=== PATIENT | female | born 1995 | race Asian ===

== ENCOUNTER → 2021-12-05 13:04 | Outpatient (CLI) | payer OTHER, SELFPAY ==
[2021-12-05 13:34] LABS: Add Manual Diff / Slide Review NO; Appearance Urine UA CLEAR; Basophils Absolute Auto 0 /uL (0-100); Basophils Percent Auto 0.8 % (0-2); Bilirubin Urine UA NEGATIVE (NEGATIVE); Color Urine UA YELLOW; Eosinophils Absolute Auto 200 /uL (0-450); Eosinophils Percent Auto 4.2 % (2-4); Glucose Urine UA NEGATIVE (Negative); Hematocrit 35.8 % (36-46); Hemoglobin 12.6 g/dL (12.0-16.0); Ketones Urine UA NEGATIVE (NEGATIVE); Leukocyte Esterase Urine UA NEGATIVE (NEGATIVE); Lymphocytes Absolute Auto 1900 /uL (1100-4500); Lymphocytes Percent Auto 32.9 % (25-40); Mean Corpuscular HGB Conc 35.1 % (30-36); Mean Corpuscular Hemoglobin 31.8 PG (26-34); Mean Corpuscular Volume 90.6 fL (80-100); Monocytes Absolute Auto 300 /uL (0-900); Monocytes Percent Auto 5.5 % (3-14); Neutrophils Absolute Auto 3300 /uL (1500-7000); Neutrophils Percent Auto 56.6 % (50-75); Nitrite Urine UA NEGATIVE (Negative); Occult Blood Urine UA NEGATIVE (Negative); Platelet Count 244 X10^3/uL (150-400); Protein Urine UA NEGATIVE (Negative); Red Blood Cell Count 3.95 X10^6/uL (4.0-5.2); Red Cell Distribution Width 12.8 % (11.6-14.8); Specific Gravity Urine UA <=1.005 (1.000-1.035); Urobilinogen Urine UA 0.2 E.U./dL (0.2); White Blood Cell Count 5.8 X10^3/uL (4.5-11.0)
[2021-12-06 04:54] LABS: RPR Screen Non Reactive (Non Reactive)
[2021-12-06 09:09] LABS: Varicella IgG Antibody 909 index (Immune >165)
[2021-12-06 17:05] LABS: Hepatitis B Surface Antigen NEGATIVE s/c (NEGATIVE); Rubella Antibody IgG 6.8 IU/mL (>15)
[2021-12-06 17:19] LABS: HIV 1 & 2 Ab/Ag 4th Gen Combo NEGATIVE (NEGATIVE); Hep C Virus Ab w/Reflex Quant NEGATIVE s/c (NEGATIVE)
== END ==
PROVIDERS: Referring Provider Family Medicine; Visit Provider Family Medicine
DX: Z34.01 Encounter for supervision of normal first pregnancy, first trimester (principal)
CPT/HCPCS: 36415; 80055; 81003; 86787; 86803; 86850; 86900; 86901; 87086; 87389

== ENCOUNTER → 2022-02-20 09:18 | Outpatient (CLI) | payer OTHER, SELFPAY ==
--- NOTE | 2022-02-20 09:20 | DI.US.S_ITS ---
PROCEDURE: US OB >= 14 WEEKS FETUS INDICATIONS: ANATOMY OUTSIDE/PRIOR DATING DATA: Last menstrual period (LMP): 10/02/2021 LMP-based estimated date of delivery (DANIEL): 07/09/2022 First dating scan (date and location): 02/20/2022 (today) Estimated date of delivery (DANIEL) from first dating scan: 07/09/2022 TECHNIQUE: Real-time scanning was performed of the fetus, with image documentation and biometric measurements. Endovaginal scanning: Not performed on today's study COMPARISON: None. FINDINGS: General: A single living intrauterine gestation is present. Presentation: Breech Placenta: Right posterior fundal, no previa Amniotic fluid index: 18.4 cm heart rate: 145 beats per minute Maternal cervical canal: 3.5 cm biometrics: Biparietal diameter: 4.8 cm Head circumference: 17.4 cm Abdominal circumference: 15.3 cm Femur length: 3.1 cm Clinically estimated gestational age: 20 weeks and 1 day Composite gestational age from present scan: 20 weeks and 1 day Estimated weight and percentile: 330 g, 41st percentile Anatomic survey: Neuro: Ventricles are non-dilated at less than 10 mm. Cisterna magna is normal at 3-11 mm. Cerebellum is normal in size and morphology. Nuchal skin fold: Normal at less than 6 mm between 14-21 weeks gestational age. Face: Nose and lips, facial profile are normal. Spine: No evidence for spina bifida. Heart: 4-chambered heart is present, with normal ventricular outflow tracts. Diaphragm: Diaphragm is intact. Stomach: Left-sided stomach is present. Kidneys: No hydronephrosis. Normal is less than 5 mm in 2nd trimester, less than 7 mm in 3rd trimester. Cord: 3-vessel cord has orthotopic insertion. Bladder: Normal in size. Extremities: All 4 extremities identified. IMPRESSION: Living intrauterine gestation at 21 weeks and 1 day, concordant biometry is seen on today's study with EFW at the 41st percentile. Normal routine anatomic survey. We strive to produce accurate, complete, and clear reports of imaging services. To assist us in improving patient care, this report was composed using standard report templates and voice recognition software. Therefore, it may contain abnormal punctuation, insertions and/or omissions. Occasional wrong-word or sound-alike substitutions may occur. Though we review the report and make efforts to correct it, we do recommend that the report be read carefully in proper context to recognize any text inaccuracies. Dictated by: Shiraz Shukla M.D. on 02/20/2022 at 12:03 Approved by: Shiraz Shukla M.D. on 02/20/2022 at 12:08
== END ==
PROVIDERS: Referring Provider Family Medicine; Visit Provider Family Medicine
DX: Z34.92 Encounter for supervision of normal pregnancy, unspecified, second trimester (principal); Z3A.21 21 weeks gestation of pregnancy
CPT/HCPCS: 76811

== ENCOUNTER → 2022-04-10 11:28 | Outpatient (CLI) | payer OTHER, SELFPAY ==
[2022-04-10 14:08] LABS: Add Manual Diff / Slide Review NO; Basophils Absolute Auto 0 /uL (0-100); Basophils Percent Auto 0.6 % (0-2); Eosinophils Absolute Auto 100 /uL (0-450); Hematocrit 31.3 % (36-46); Hemoglobin 10.8 g/dL (12.0-16.0); Lymphocytes Absolute Auto 1500 /uL (1100-4500); Lymphocytes Percent Auto 25.1 % (25-40); Mean Corpuscular HGB Conc 34.5 % (30-36); Mean Corpuscular Hemoglobin 32.2 PG (26-34); Mean Corpuscular Volume 93.4 fL (80-100); Monocytes Absolute Auto 400 /uL (0-900); Monocytes Percent Auto 6.4 % (3-14); Neutrophils Absolute Auto 3900 /uL (1500-7000); Neutrophils Percent Auto 66.9 % (50-75); Platelet Count 262 X10^3/uL (150-400); Red Blood Cell Count 3.35 X10^6/uL (4.0-5.2); Red Cell Distribution Width 13.3 % (11.6-14.8); White Blood Cell Count 5.9 X10^3/uL (4.5-11.0)
[2022-04-10 14:29] LABS: GTT (PREG) 1 Hour PP 50gm Dose 85 mg/dL (76-139)
== END ==
PROVIDERS: Referring Provider Family Medicine; Visit Provider Family Medicine
DX: Z34.92 Encounter for supervision of normal pregnancy, unspecified, second trimester (principal); Z3A.26 26 weeks gestation of pregnancy
CPT/HCPCS: 36415; 82950; 85025

== ENCOUNTER 2022-05-31 11:38 | Outpatient (CLI) | payer OTHER, SELFPAY ==
--- NOTE | 2022-05-31 11:44 | DI.US.S_ITS ---
PROCEDURE: US OB LIMITED INDICATIONS: BLEEDING OUTSIDE/PRIOR DATING DATA: Last menstrual period (LMP): 10/02/2021 LMP-based estimated date of delivery (DANIEL): 07/09/2022 First dating scan (date and location): 02/20/2022 Estimated date of delivery (DANIEL) from first dating scan: 07/09/2022 The calculations are made using the working DANIEL of 07/09/2022. TECHNIQUE: Real-time scanning was performed of the fetus, with image documentation. Endovaginal scanning: Not indicated COMPARISON: [facility], , OB >= 14 WEEKS FETUS, 02/20/2022, 9:27. FINDINGS: General: A single living intrauterine gestation is present. Presentation: Vertex Placenta: Placental position is anterior, without previa. Amniotic fluid index: 5.1 cm, normal range is 5-24 cm. Single deepest vertical pocket is 2.0 cm. heart rate: 162 beats per minute. Maternal cervical canal: Not well seen. Estimated weight and percentile: 34 weeks, 3 days. Other: Not applicable. IMPRESSION: 1. Single live intrauterine gestation with fetus in vertex presentation. heart rate is 162 beats per minute. Amniotic fluid level is near the lower limit of normal. RHODA measures 5.1 cm with the largest pocket measures 2.0 cm. 2. Placenta location is anterior, no placenta previa. No gross abruption. Dictated by: Dougie Ingram M.D. on 05/31/2022 at 12:11 Approved by: Dougie Ingram M.D. on 05/31/2022 at 12:14
--- NOTE | 2022-05-31 12:57 | P.TNLD_ITS ---
Visit Information Visit Information Date of evaluation: 05/30/21 Primary OB Provider: Sandra Caballero Comments/Additional reasons for admission: Pt is a 26yo at 34w2d here for evaluation of vaginal bleeding. Pt was just seen in clinic where cervix was closed. Pt with ongoing dark brown spotting with intermittent brighter bleeding. Overall mild but persistent. No recent intercourse. No LOF, contractions. She is feeling her baby move regularly. [facility] Medical History Migraine headache without aura Scoliosis (~2007) Surgical History Anesthesia Chalazion [place] teeth extracted Family History Mother Hypertension Hyperlipidemia Grandmother Hypertension Grandmother Hypertension Social History marital status: number of children: 0 household members: spouse lives independently: Yes housing: house pets and animals: Yes (2 dogs) education level: college ([employer] degree) occupational status: previously employed current occupational exposures/hazards: No special grace needs: No travel history: over 6 months ago seatbelt use: always water heater temp set < 120 deg: Yes working smoke detector in home: Yes fire extinguisher in home: Yes carbon monox detector in home: Yes firearms in home: Yes firearms unloaded and locked: Yes do you feel safe at home: Yes Smoking Status: Never smoker second hand exposure: No alcohol intake: former substance use type: does not use during the past year weight has: remained stable well-balanced diet: daily or most days daily servings fruits/ve-4 caffeine: No Type(s) of exercise: running frequency: 3-4 times per week Evaluation Evaluation Baseline heart rate: 140 Variability: Moderate (11-25) monitor accelerations: Present Monitor Decelerations: Absent Category of Tracing: Reactive Diagnosis, Plan/Disposition Plan/Disposition Plan: Pt is a 26yo at 34w2d here for evaluation of vaginal bleeding. NST reactive and reassuring. Infrequent contractions not felt by the patient. U/S without evidence of previa or abruption. Does show borderline oligo with RHODA of 5.1. Will have pt return for testing twice weekly and repeat NST next week. Stressed the importance of fluid intake. Feel pt is safe for d/c home. Discussed strict return precautions. OB Disposition: home
== END 2022-05-31 13:19 | disposition home or self-care (01) ==
LOC: LABOR 12:28 → OB 06-03 15:27
PROVIDERS: PCP Family Medicine; Referring Provider Family Medicine; Visit Provider Family Medicine
DX: O26.853 Spotting complicating pregnancy, third trimester (principal); Z3A.34 34 weeks gestation of pregnancy
CPT/HCPCS: 59025; 76815; G0378; G0379

== ENCOUNTER 2022-06-02 10:01 | Outpatient (CLI) | payer OTHER, SELFPAY ==
--- NOTE | 2022-06-02 10:31 | PM.OBTRLD ---
Visit Information Visit Information Date of evaluation: 06/02/22 Comments/Additional reasons for admission: 26yo at 34w5d here for NST for borderline oligohydramnios. Pt with an incidentally found RHODA of 5.1 on u/s earlier this week completed due to vaginal bleeding. No further vaginal bleeding. No LOF, contractions. She is feeling her baby move regularly. [facility] Medical History Migraine headache without aura Scoliosis (~2007) Surgical History Anesthesia Chalazion [place] teeth extracted Family History Mother Hypertension Hyperlipidemia Grandmother Hypertension Grandmother Hypertension Social History marital status: number of children: 0 household members: spouse lives independently: Yes housing: house pets and animals: Yes (2 dogs) education level: college ([employer] degree) occupational status: previously employed current occupational exposures/hazards: No special grace needs: No travel history: over 6 months ago seatbelt use: always water heater temp set < 120 deg: Yes working smoke detector in home: Yes fire extinguisher in home: Yes carbon monox detector in home: Yes firearms in home: Yes firearms unloaded and locked: Yes do you feel safe at home: Yes Smoking Status: Never smoker second hand exposure: No alcohol intake: former substance use type: does not use during the past year weight has: remained stable well-balanced diet: daily or most days daily servings fruits/ve-4 caffeine: No Type(s) of exercise: running frequency: 3-4 times per week Evaluation Evaluation Baseline heart rate: 140 Variability: Moderate (11-25) monitor accelerations: Present Monitor Decelerations: Absent Category of Tracing: Reactive Diagnosis, Plan/Disposition Final Diagnosis (1) Oligohydramnios: Status: Acute (2) 34 weeks gestation of : Status: Acute Plan/Disposition Plan: 26yo at 34w5d here for NST for borderline oligohydramnios, RHODA 5.1 on 05/30. Plan for repeat RHODA on 06/06. NST reactive. OB Disposition: home
== END 2022-06-02 10:35 | disposition home or self-care (01) ==
LOC: LABOR 10:32 → OB 06-03 15:25
PROVIDERS: PCP Family Medicine; Referring Provider Family Medicine; Visit Provider Family Medicine
DX: O41.03X0 Oligohydramnios, third trimester, not applicable or unspecified (principal); Z3A.34 34 weeks gestation of pregnancy
CPT/HCPCS: 59025; G0378; G0379

== ENCOUNTER 2022-06-05 10:02 | Outpatient (CLI) | payer OTHER, SELFPAY ==
--- NOTE | 2022-06-05 10:04 | DI.US.S_ITS ---
PROCEDURE: US OB >= 14 WEEKS FETUS INDICATIONS: RHODA OUTSIDE/PRIOR DATING DATA: Last menstrual period (LMP): 10/02/2021 LMP-based estimated date of delivery (DANIEL): 07/09/2022 First dating scan (date and location): 02/20/2022 Estimated date of delivery (DANIEL) from first dating scan: 07/09/2022 The calculations are made using the working DANIEL of 07/09/2022 TECHNIQUE: Real-time scanning was performed of the fetus, with image documentation and biometric measurements. Endovaginal scanning: Not performed COMPARISON: [facility], OB >= 14 WEEKS FETUS, 02/20/2022, 9:27. FINDINGS: General: A single living intrauterine gestation is present. Presentation: Vertex Placenta: Placental position is anterior, without previa. Amniotic fluid index: 8.5 cm, normal range is 5-24 cm. Single deepest vertical pocket is 3.2 cm. heart rate: 147 beats per minute. Maternal cervical canal: 3.1 cm long. Normal lower limit is 2.5 cm. Clinically estimated gestational age: 35 weeks 1 day Miscellaneous: Not applicable IMPRESSION: 1. Single live intrauterine . 2. Amniotic fluid index is within normal limits at 8.5 cm. Deepest vertical fluid pocket is 3.2 cm. We strive to produce accurate, complete, and clear reports of imaging services. To assist us in improving patient care, this report was composed using standard report templates and voice recognition software. Therefore, it may contain abnormal punctuation, insertions and/or omissions. Occasional wrong-word or sound-alike substitutions may occur. Though we review the report and make efforts to correct it, we do recommend that the report be read carefully in proper context to recognize any text inaccuracies. Approved by: Giancarlo Valencia M.D. on 06/05/2022 at 11:08
--- NOTE | 2022-07-05 06:49 | PM.CALLCOV.1 ---
Call Coverage Note Note Date of Patient Contact: 07/05/22 Time of Patient Contact: 06:49 Narrative of Care Provided: Nata paged with questions about vaginal discharge. Woke up today and noticed her usual white creamy discharge, but then noticed pink, watery discharge. Wonders if this is normal. Baby moving well. has not lost any fluid since then. Has a pad on. IUP at 39+ weeks Normal movement GBS neg Recommend keeping a close eye on fluid, call back if notices more watery discharge or unsure. If has more, plan to come in for evaluation. Review that seeing pink or red discharge is okay at term; if sees bleeding like a period, should call and come in jasbir. Reviewed warning signs other reasons to call provider as needed.
== END 2022-06-05 10:35 | disposition home or self-care (01) ==
LOC: OB 06-08 12:03
PROVIDERS: PCP Family Medicine; Referring Provider Family Medicine; Visit Provider Family Medicine
DX: O41.03X0 Oligohydramnios, third trimester, not applicable or unspecified (principal); Z3A.35 35 weeks gestation of pregnancy
CPT/HCPCS: 59025; 76811; G0378; G0379

== ENCOUNTER → 2022-06-13 11:42 | Outpatient (CLI) | payer OTHER, SELFPAY ==
[2022-06-14 11:43] LABS: Strep Grp B PCR NEG for Grp B Strep
== END ==
PROVIDERS: PCP Family Medicine; Visit Provider Family Medicine
DX: Z34.90 Encounter for supervision of normal pregnancy, unspecified, unspecified trimester (principal); Z3A.36 36 weeks gestation of pregnancy
CPT/HCPCS: 87653

== ENCOUNTER 2022-07-05 17:13 | Inpatient (IN) | payer OTHER, SELFPAY ==
[2022-07-05] MEDS: LACTATED RINGERS 1,000 ML 100 ML IV (18:20)
[2022-07-05 18:29] VITALS: BP 114/72
[2022-07-05 19:23] LABS: Add Manual Diff / Slide Review NO; Basophils Absolute Auto 100 /uL (0-100); Basophils Percent Auto 0.8 % (0-2); Eosinophils Absolute Auto 100 /uL (0-450); Eosinophils Percent Auto 0.6 % (2-4); Hematocrit 40.1 % (36-46); Hemoglobin 13.5 g/dL (12.0-16.0); Lymphocytes Absolute Auto 2000 /uL (1100-4500); Lymphocytes Percent Auto 22.7 % (25-40); Mean Corpuscular HGB Conc 33.6 % (30-36); Mean Corpuscular Hemoglobin 31.8 PG (26-34); Mean Corpuscular Volume 94.7 fL (80-100); Monocytes Absolute Auto 500 /uL (0-900); Monocytes Percent Auto 5.5 % (3-14); Neutrophils Absolute Auto 6400 /uL (1500-7000); Neutrophils Percent Auto 70.4 % (50-75); Platelet Count 284 X10^3/uL (150-400); Red Blood Cell Count 4.23 X10^6/uL (4.0-5.2); Red Cell Distribution Width 13.4 % (11.6-14.8)
--- NOTE | 2022-07-05 20:21 | PM.OBHP.IH.1 ---
OB HPI Date/Time Date of admission: 07/05/22 Date Patient Seen: 07/05/22 Time Patient Seen: 17:50 History of Present Condition Chief complaint: OBSERVATION DANIEL Calculator Estimated Delivery Date Method Current WG Current Estimate 07/09/22 LMP (Certain) 39w 3d Other Estimates 07/14/22 Ultrasound #1 38w 5d 07/09/22 Manual 39w 3d Final DANIEL - OLLIE Estimated Gestational Age (weeks): 39w3d : 1 Para: 0 care: good care, initiated at week # (9), number of visits (12) and pounds weight gain (35) Dating criteria OB: LMP confirmed by 1st trimester US Ultrasounds: normal 1st trimester US and normal mid trimester US Obstetrical complications: none Medical complications OB: none External History Prior Pregnancies: None : 1 Para: 0 Estimated Date of Delivery: 07/09/22 Narrative: Nata Seo 26 yo at 39wks 3days by LMP concordant with early US within 5 days. Here for evaluation of leaking fluid. Noticed significant leaking of clear, blood-tinged fluid at 0630 this morning 07/05/22, but questions if she first noticed leaking about one week ago as well. Soaking through pad. Mild contractions also began this morning and have intensified. Denies fever, chills. Positive movement. Desires epidural for pain management but wants to try walking around for awhile first. Preadmission Labs Last OB Lab Results: Blood Type AB Positive 07/05/22 18:20 Antibody Screen Negative 07/05/22 18:20 Hematocrit 40.1 % (36-46) 07/05/22 18:20 Hemoglobin 13.5 g/dL (12.0-16.0) 07/05/22 18:20 Hepatitis B Surface Antigen Negative s/c (NEGATIVE) 12/05/21 13:08 Hepatitis C Antibody Negative s/c (NEGATIVE) 12/05/21 13:08 Rubella Antibody 6.8 IU/mL (>15) L 12/05/21 13:08 Varicella-Zoster IgG Antibody 909 index (Immune >165) 12/05/21 13:08 Glucose 1 Hour 85 mg/dL (76-139) 04/10/22 13:13 Group B Streptococcus (PCR) Neg for grp b strep 06/13/22 11:42 Glucose Tolerance Testin hr (passed) Genetic Screens: Cell-free DNA: Normal Evaluation Evaluation Baseline heart rate: 130 Variability: Moderate (11-25) monitor accelerations: Present Monitor Decelerations: Absent and Prolonged (in triage, x1 for 7 minutes, returned to baseline with position changes ) Contraction Frequency (minutes): 6 Uterine Contraction Intensity: Strong/Firm Status: Category l Dilation (cm): 4 Effacement (%): 80 Dilation: 3-4 cm Effacement: >/=80% station: -1 [facility] Medical History Migraine headache without aura Scoliosis (~2007) Surgical History Anesthesia Chalazion [place] teeth extracted Family History Mother Hypertension Hyperlipidemia Grandmother Hypertension Grandmother Hypertension Social History marital status: number of children: 0 household members: spouse lives independently: Yes housing: house pets and animals: Yes (2 dogs) education level: college ([employer] degree) occupational status: previously employed current occupational exposures/hazards: No special grace needs: No travel history: over 6 months ago seatbelt use: always water heater temp set < 120 deg: Yes working smoke detector in home: Yes fire extinguisher in home: Yes carbon monox detector in home: Yes firearms in home: Yes firearms unloaded and locked: Yes do you feel safe at home: Yes Smoking Status: Never smoker second hand exposure: No alcohol intake: former substance use type: does not use during the past year weight has: remained stable well-balanced diet: daily or most days daily servings fruits/ve-4 caffeine: No Type(s) of exercise: running frequency: 3-4 times per week Meds Home Medications and Allergies Home Medications Medication Instructions Recorded Confirmed Type prenat.vits,nabli,ujf-ouip-svvqb 1 tab PO DAILY #90 tabs 11/14/21 07/03/22 Rx Allergies Allergy/AdvReac Type Severity Reaction Status Date / Time No Known Allergies Allergy Verified 07/03/22 15:44 Review of Systems Review of Systems Narrative: All systems reviewed with negative findings except what is noted in HPI. OB Exam Vital signs Blood Pressure: 114/72 Pulse Rate: 79 Respiratory Rate: 16 Temperature: 98.8 F HENMT Head: normal to inspection Eyes General: appearance normal, both eyes and all related structures Resp Effort & Inspection: normal respiratory effort Auscultation: clear to auscultation bilaterally Cardio Rate: regular rate Rhythm: regular rhythm Extremities Lower extremity: Yes normal to inspection Presentation: vertex Objective Labs 07/05/22 18:20 Labs: Laboratory Results - last 24 hr 07/05/22 18:20 WBC 9.0 RBC 4.23 Hgb 13.5 Hct 40.1 MCV 94.7 MCH 31.8 MCHC 33.6 RDW 13.4 Plt Count 284 Neut % (Auto) 70.4 Lymph % (Auto) 22.7 L Haakon % (Auto) 5.5 Eos % (Auto) 0.6 L Baso % (Auto) 0.8 Neut # (Auto) 6400 Lymph # (Auto) 2000 Haakon # (Auto) 500 Eos # (Auto) 100 Baso # (Auto) 100 Assessment and Plan Assessment and Plan Assessment and Plan narrative: ASSESSMENT: TermNullipara Early labor PROM x 12 hours, clear fluid No indication for GBS prophylaxis Rh positive Cat II FHR (initially in triage for 3 recurrent deceleration, no recurrence since and now Cat I) PLAN: Admit, routine orders Continuous EFM Epidural when requested Will consider pitocin augmentation of no active labor at next check Reassess in 4-6 hours Anticipate
[2022-07-05 21:00] VITALS: BP 114/72; PULSE 79; RESP 16; TEMP 37.1
--- NOTE | 2022-07-06 00:13 | PM.OBPNLAB ---
Date/Time Date Patient Seen: 07/06/22 Time Patient Seen: 00:13 Pain Control Pain control: tolerating well Comments: Nata has been coping well with contractions so far with being in a variety of positions. Feels like contractions are getting closer together and more intense in general but some contractions are very mild. Has noticed continued bloody vaginal discharge when she uses the bathroom. VS: BP 133/82, HR 82bpm, T 36.6C Temporal Pelvic Exam Dilation (cm): 7 Effacement (%): 80 station: 0 Amniotic membrane status: Leaking Comments: soft, mid Contractions Date/Time contractions began: 07/05/2022 in afternoon Contractions on admission: irregular Monitor mode: External Contraction frequency (min): 4 Contraction intensity: Strong/Firm Status status: Category l Heart Rate Baseline: 145 Monitor Accelerations: Present Monitor Decelerations: Absent Monitor Variability: Moderate Assessment and Plan Assessment: active labor Comments: ASSESSMENT: 26 yo at 39w3d Active labor SROM x 18 hours without sx of infection No indication for GBS prophylaxis Rh positive FHR Cat 1 Plan: Continue expectant management of labor Epidural whenever desired Reassess in 4 hours or sooner, PRN Anticipate
[2022-07-06] MEDS: FENT 2MCG/ML BUPIV 0.125% EPI 200 MCG/100 ML PLAST..BAG 12 MCG EPIDURAL ×2 (03:15→08:16)
[2022-07-06] MEDS: LACTATED RINGERS 1,000 ML 100 ML IV (05:33)
--- NOTE | 2022-07-06 05:34 | PM.OBPNLAB ---
Date/Time Date Patient Seen: 07/06/22 Time Patient Seen: 05:15 Pain Control Pain control: epidural (replaced, now adequate, but R>L) Comments: VS: BP 108/68, HR 77bpm, T 36.6C Temporal Pelvic Exam Dilation (cm): 7 Effacement (%): 80 station: 0 Amniotic membrane status: Leaking Comments: bulging forebag Contractions Contractions on admission: irregular Monitor mode: External Pitocin rate (mU/min): 0 Contraction frequency (min): 5 Contraction duration (min): 1 Contraction intensity: Strong/Firm Status status: Category l Heart Rate Baseline: 125 Monitor Accelerations: Present Monitor Decelerations: Absent Monitor Variability: Moderate Assessment and Plan Assessment: active labor Plan: begin patient augmentation Comments: Counseled patient on spaced contractions and slowed labor progression with recommendation for augmentation. Offered AROM forebag vs pitocin with discussion of risks and benefits. Patient elected pitocin augmentation which has been ordered and RN notified. Reassess in 4 hours or sooner, PRN.
[2022-07-06] MEDS: OXYTOCIN PREMIX 30 UNIT/500 ML PLAST..BAG IV ×2 (05:48→09:28)
--- NOTE | 2022-07-06 08:41 | P.PNOB_ITS ---
Date/Time Date Patient Seen: 07/06/22 Time Patient Seen: 08:20 Pain Control Pain control: epidural Comments: Epidural is not working well. It was replaced once and and just rebolused. Pelvic Exam Dilation (cm): 9 Effacement (%): 100 station: 0 Amniotic membrane status: Ruptured (AROM clear fluid) Contractions Monitor mode: External Contraction frequency (min): 4 Contraction intensity: Strong/Firm Status status: Category l Heart Rate Baseline: 130 Monitor Accelerations: Present Monitor Decelerations: Early Monitor Variability: Moderate Assessment and Plan Assessment: active labor Plan: continuous present management Comments: 26-year-old at 39 weeks and 4 days gestation. Progressed slowed significan tly after epidural placement. AROM performed with clear fluid for augmentation. Will start pitocin if contractions do not increase following AROM. Anesthesia will be called again regarding pain control.
--- NOTE | 2022-07-06 12:54 | PM.OBPRVD ---
Labor & Delivery Delivery date: 07/06/22 Delivery augmentation: rupture of membranes and pitocin Delivery monitor: external FHT Route of delivery: L&D Laceration Description: Periurethral - 1st Degree and Perineal - 2nd Degree Delivery repair: vicryl and chromic Estimated blood loss (mL): 400 Anesthesia Type: Epidural Narrative: Vaginal delivery note STAGE I: Labor Patient is a 26-year-old at 39 weeks and 4 days gestation who presented after SROM at home. SROM occurred at approximately 6:30 a.m. on 07/05/22 with clear fluid. She was admitted to the center that evening with significant cervical change and went on to receive an epidural. Epidural was initially in adequate and redone though she was still quite painful. Contractions spaced after epidural placement and cervix did not change for many hours. Artificial rupture of membranes was performed of a forebag at 8:20 a.m. with clear fluid on 07/06/22. She progressed to completely dilated at 10:22 a.m. after minimal Pitocin augmentation. heart tones were primarily category 1 throughout stage I though she had a couple episodes of prolonged decelerations with returned to baseline. STAGE II: Delivery Patient was complete at 10:22 a.m. and pushed well for just over an hour. She went on to deliver a vigorous male at 11:39 a.m.. Infant was vertex and YISEL. He was immediately placed on mother's abdomen. Cord was clamped and cut after approximately 1 minute delay. Apgars were 9 and 9, no resuscitation of the required. heart tones were category 2 throughout stage II due to decelerations with pushing. STAGE III: Placenta/Cord Placenta delivered at 11:45 a.m. and appeared intact with a three-vessel cord. Pitocin bolus given via the IV after delivery of placenta. There was a first-degree superior periurethral laceration which was repaired with 4-0 Vicryl with good hemostasis. A second-degree perineal and vaginal laceration was repaired in the usual fashion with 3-0 chromic, also with good hemostasis. Fundus was firm below umbilicus after repair. EBL: 400 mL. Needle and sponge counts were correct. The vagina was inspected and no items were left in situ. Patient was doing well with Chao, her and at bedside. [place] Baby 1: gender: Male Presentation: vertex Position: Left Occiput Anterior Placenta delivery description: Spontaneous Cord Vessel Description: 3 Vessels score (1 min): 9 score (5 min): 9 weight: 7 lb 11.282 oz Plan for aftercare: Routine care
[2022-07-06] MEDS: ACETAMINOPHEN 325 MG TABLET 650 MG PO (13:30)
[2022-07-06] MEDS: IBUPROFEN 600 MG TABLET PO ×2 (13:31→23:36)
[2022-07-07 06:52] LABS: Hematocrit 30.9 % (36-46); Hemoglobin 10.7 g/dL (12.0-16.0)
[2022-07-07] MEDS: IBUPROFEN 600 MG TABLET PO (08:56)
[2022-07-07] MEDS: DOCUSATE 100 MG CAPSULE PO (08:57)
[2022-07-07] MEDS: ACETAMINOPHEN 325 MG TABLET 650 MG PO (08:57)
[2022-07-07] MEDS: PRENATAL VIT,CALC/IRON/FOLIC 1 TABLET 1 TAB PO (08:57)
--- NOTE | 2022-07-07 10:13 | PM.OBDS.1 ---
Discharge Providers Provider Date of admission: 07/05/22 17:13 Discharge Date: 07/07/22 Primary care physician: Sandra Caballero MD Consults: 07/07/22 12:55 Consult to Hospice Nurse Routine Comment: Discharge provider: Amy Plata DO Summary Hospital Course Date Patient Seen: 07/07/22 Time Patient Seen: 07:45 Diagnoses: 39 weeks of Spontaneous vaginal delivery Epidural analgesia Hospital Course: Patient is a 26-year-old G1 now P1 after uncomplicated spontaneous vaginal delivery at 39 weeks and 4 days gestation. She was admitted with SROM and progressed into active labor. She received an epidural though pain control was inadequate for quite some time. Ultimately pain was well-controlled prior to stage II. She went on to deliver a vigorous male infant without complications. Perineal and periurethral lacerations were repaired with good hemostasis. course uncomplicated. Patch was ambulating, voiding and passing flatus. Tolerating a diet with adequate pain control with ibuprofen and Tylenol. Vaginal bleeding was moderate and decreasing. was going well without concerns in the . Follow-up for 6 week visit or sooner if needed. Advised patient to call for fevers, severe pain or bleeding through more than a pad an hour. Peripartum Data Delivery Method: Natural Vaginal Laceration Description: Periurethral - 1st Degree and Perineal - 2nd Degree complications: none [place] 1: Gender: Male Disposition of : home Discharge Diagnosis (1) Spontaneous vaginal delivery: Status: Acute (2) 39 weeks gestation of : Status: Acute Status at Discharge Cognitive/behavioral status at discharge: at baseline, oriented Functional status at discharge: independent ambulation Overall status at discharge: patient is progressing back to baseline Time Spent with Patient Time attestation: Total time spent providing and/or coordinating discharge services: Time spent: Less than 30 minutes Objective Labs 07/07/22 06:48 Labs: Laboratory Results - last 24 hr 07/07/22 06:48 Hgb 10.7 L Hct 30.9 L Exam Vital Signs (past 8 hours): Temperature 98.0? blood pressure 104/68 heart rate 94 Narrative Exam Narrative: General: Awake and alert, no acute distress. HEENT: NCAT, EOMI, moist oral mucosa CV: Regular rate and rhythm, no murmurs, rubs or gallops Lungs: CTAB, no wheezes, rales, or rhonchi Abdomen: Soft, nontender; bowel tones active; uterus firm 1 cm below umbilicus Extremities: Warm, no edema Discharge Plan Discharge Plan Patient Disposition: Home Discharge orders & Medications Prescriptions: New docusate sodium 100 mg Capsule 100 mg PO DAILY Qty: 30 0RF ibuprofen 600 mg Tablet 600 mg PO Q6HR PRN (Reason: Pain, Mild (1-3)) Qty: 30 0RF Continued prenat.vits,nabil,pfk-bond-jespu Tablet 1 tab PO DAILY Qty: 90 3RF Follow up/Referrals: Sandra Caballero MD [Primary Care Provider] - 6 Weeks (Please follow up with Dr. Caballero on August 23 @ 10:15 for your 6 week post- check up. Please call the clinic with any questions prior to this appt. ) Visit Report/Discharge Packet Stand Alone Forms: Patient Portal/API, Stroke Signs & Symptoms Discharge Data Primary Care Provider: Sandra Caballero
[2022-07-07 13:12] VITALS: BP 115/74; PULSE 74; RESP 16; TEMP 37.1
[2022-07-07] MEDS: MEASLES,MUMPS,RUBELLA VACC/PF 0.5 ML VIAL SUBCUT (13:39)
== END 2022-07-07 14:40 | disposition home or self-care (01) | DRG 807 ==
PROVIDERS: Family Medicine; Admitting Provider Nurse Practitioner Obstetrics & Gynecology; PCP Family Medicine; Referring Provider Nurse Practitioner Obstetrics & Gynecology; Visit Provider Nurse Practitioner Obstetrics & Gynecology
DX: O42.02 Full-term premature rupture of membranes, onset of labor within 24 hours of rupture (principal); Z37.0 Single live birth; Z3A.39 39 weeks gestation of pregnancy; O71.82 Other specified trauma to perineum and vulva; O70.1 Second degree perineal laceration during delivery; O76 Abnormality in fetal heart rate and rhythm complicating labor and delivery
CPT/HCPCS: 36415; 59050; 59400; 59409; 85014; 85018; 85025; 86850; 86900; 86901; G0379; J2590

== ENCOUNTER → 2022-07-23 13:50 | Outpatient (CLI) | payer OTHER, SELFPAY ==
[2022-07-23 14:52] LABS: Influenza A - CEPHEID Flu A NEGATIVE (NEGATIVE); Influenza B - CEPHEID Flu B NEGATIVE (NEGATIVE); Respiratory Syncytial Virus Negative (Negative)
[2022-07-23 15:47] LABS: COVID-19 CEPHEID 4-PLEX PCR Negative (Negative)
== END ==
PROVIDERS: PCP Family Medicine; Visit Provider Student in an Organized Health Care Education/Training Program
DX: R30.0 Dysuria (principal); R50.9 Fever, unspecified; R52 Pain, unspecified
CPT/HCPCS: 0241U; 87086

== ENCOUNTER 2022-07-23 13:57 | Emergency (ER) | payer OTHER, SELFPAY ==
[2022-07-23] VITALS (13 sets, daily range): BP systolic 108–126; BP diastolic 59–82; PULSE 92–131; RESP 18–20; TEMP 37.2–38.4; O2SAT 96–99; BMI 22.3
--- NOTE | 2022-07-23 14:26 | DI.RAD.S_ITS ---
PROCEDURE: XR CHEST 1V INDICATIONS: suspected sepsis TECHNIQUE: One view of the chest was acquired. COMPARISON: None. FINDINGS: Surgical changes and devices: None. Lungs and pleura: Lungs are clear. No pleural effusions or pneumothorax. Mediastinum: Mediastinal contours appear normal. Heart size is normal. Bones and chest wall: No suspicious bony lesions. Overlying soft tissues appear unremarkable. IMPRESSION: No acute cardiopulmonary findings Approved by: Terrence Medrano M.D. on 07/23/2022 at 14:41
[2022-07-23] MEDS: SODIUM CHLORIDE 0.9% 1,000 ML 1000 ML IV ×2 (14:55→16:20)
--- NOTE | 2022-07-23 14:55 | PC.NURSE ---
Patient sitting up in chair .
[2022-07-23 15:06] LABS: Add Manual Diff / Slide Review NO; Basophils Absolute Auto 100 /uL (0-100); Basophils Percent Auto 0.4 % (0-2); Eosinophils Absolute Auto 0 /uL (0-450); Eosinophils Percent Auto 0.3 % (2-4); Hematocrit 38.7 % (36-46); Hemoglobin 12.8 g/dL (12.0-16.0); Lymphocytes Absolute Auto 1200 /uL (1100-4500); Lymphocytes Percent Auto 7.3 % (25-40); Mean Corpuscular HGB Conc 33.2 % (30-36); Mean Corpuscular Hemoglobin 30.6 PG (26-34); Mean Corpuscular Volume 92.4 fL (80-100); Monocytes Absolute Auto 700 /uL (0-900); Monocytes Percent Auto 4.3 % (3-14); Neutrophils Absolute Auto 14500 /uL (1500-7000); Neutrophils Percent Auto 87.7 % (50-75); Platelet Count 432 X10^3/uL (150-400); Red Blood Cell Count 4.19 X10^6/uL (4.0-5.2); Red Cell Distribution Width 13.4 % (11.6-14.8); White Blood Cell Count 16.5 X10^3/uL (4.5-11.0)
[2022-07-23] MEDS: ACETAMINOPHEN 325 MG TABLET 975 MG PO (15:19)
[2022-07-23 15:21] LABS: Prothrombin Time 11.7 SECONDS (10.1-12.7)
[2022-07-23 15:24] LABS: PTT Partial Thromboplastin Tim 28 SECONDS (26-36)
[2022-07-23 15:25] LABS: Alanine Aminotransferase 18 IU/L (<35); Albumin 4.6 g/dL (3.5-5.0); Albumin Globulin Ratio 1.2 (1.0-2.8); Alkaline Phosphatase 99 U/L (38-126); Aspartate Aminotransferase 24 IU/L (14-36); Bilirubin Total 0.3 mg/dL (0.2-1.3); Blood Urea Nitrogen 8 mg/dL (7-17); Calcium 9.1 mg/dL (8.4-10.2); Carbon Dioxide 22 mmol/L (22-32); Chloride 101 mmol/L (98-107); Estimated Glomerular Filt Rate > 60 mL/min (>60); Globulin 3.8 g/dL (1.7-4.1); Glucose 94 mg/dL (70-100); HEMOLYSIS 21 (0-50); Lipase 69 U/L (23-300); Potassium 3.8 mmol/L (3.4-5.1); Sodium 136 mmol/L (137-145); Total Protein 8.4 g/dL (6.3-8.2)
[2022-07-23 15:26] LABS: Lactate (Lactic Acid) 0.8 mmol/L (0.7-2.1)
[2022-07-23 15:40] LABS: Procalcitonin 0.05 ng/mL (<0.5)
--- NOTE | 2022-07-23 16:10 | DI.US.S_ITS ---
PROCEDURE: US BREAST RT LIMITED COMPARISON: None. INDICATIONS: POSSIBLE ABSCESS FINDINGS: Directed soft tissue ultrasound was obtained in upper outer quadrant of the right breast shows appropriate echotexture and vascularity without evidence of abscess IMPRESSION: Unremarkable soft tissue ultrasound without abscess Approved by: Terrence Medrano M.D. on 07/23/2022 at 17:11
--- NOTE | 2022-07-23 16:13 | ED.SEPSIS ---
HPI - Sepsis General Chief Complaint: Fever Mode of arrival: Family Vehicle Source: patient Limitations: no limitations Evaluation Sepsis Screen: No Definite Risk Sepsis Infection Criteria Present: None Narrative: This is a 27-year-old female with 2 weeks from vaginal delivery who is actively . Patient developed fever, myalgias chills and right breast pain little bit more on the lateral side starting in the last day. Patient states no shortness of breath, no deeper chest pain. No rash, skin changes no induration or hard surface. Patient states no nausea or vomiting. No abdominal back or flank pain that is new. She is had some persistent lower pelvic pain but states that is improving over time. She denies dysuria, urgency or frequency. She is having some occasional vaginal bleeding but improving slowing over time with no new odor or discharge changes. She has not noticed any change to the milk itself she states she did have cracked nipples initially but that is improving. She states they are working on latch. She states patient has been well and it has been going well. She denies any prior surgeries. No known drug allergies. No tobacco, alcohol or illicit. Medications right now are ibuprofen, stool softener and her vitamin. Dr. Brown is her physician and care provider. Review of Systems Review of Systems ROS Unobtainable: All systems reviewed & are unremarkable except as noted in HPI and below Patient History Medical History Migraine headache without aura Scoliosis (~2007) Spontaneous vaginal delivery Surgical History Anesthesia [place] teeth extracted Family History Mother Hypertension Hyperlipidemia Grandmother Hypertension Grandmother Hypertension Social History marital status: number of children: 0 household members: spouse lives independently: Yes housing: house pets and animals: Yes (2 dogs) education level: college ([employer] degree) occupational status: previously employed current occupational exposures/hazards: No special grace needs: No travel history: over 6 months ago seatbelt use: always water heater temp set < 120 deg: Yes working smoke detector in home: Yes fire extinguisher in home: Yes carbon monox detector in home: Yes firearms in home: Yes firearms unloaded and locked: Yes do you feel safe at home: Yes Smoking Status: Never smoker second hand exposure: No alcohol intake: former substance use type: does not use during the past year weight has: remained stable well-balanced diet: daily or most days daily servings fruits/ve-4 caffeine: No Type(s) of exercise: running frequency: 3-4 times per week Smoking Status: Never smoker alcohol intake frequency: 0-2 drinks per day Substance Use Type: does not use Exam Narrative Exam Narrative: GENERAL: Alert and oriented x three, female in mild distress HEENT: Head normocephalic, atraumatic, EOMI, pupils reactive, face symmetric, moist mucous membranes NECK: Supple, full range of motion CARDIOVASCULAR: Regular rate and rhythm without murmurs, rubs or gallops. RESPIRATORY: Breath sounds equal bilaterally, no wheezes rales or rhonchi. ABDOMEN: Soft, nontender. Normoactive bowel sounds all 4 quadrants. No guarding or rebound, rigidity, no mass : No CVA tenderness EXTREMITIES: Normal range of motion, no clubbing or edema. Neurovascularly intact NEUROLOGICAL: Cranial nerves II through XII grossly intact. Moving all extremities SKIN: Warm, dry, no petechiae, no rashes or lesions. Right breast is soft, mild tenderness but not exquisite. No warmth, erythema or skin changes clearly noted. There is some slight induration at the 9 o'clock position. Milk expressed from the right nipple is normal in color and consistency. Patient does state is tender to palpation. Initial Vital Signs Initial Vital Signs: Vital Signs Temperature 101.2 F H 07/23/22 14:19 Pulse Rate 131 H 07/23/22 14:19 Respiratory Rate 20 07/23/22 14:19 Blood Pressure 125/82 07/23/22 14:19 Pulse Oximetry 96 07/23/22 14:19 Oxygen Delivery Method 07/23/22 14:19 Course Orders Ordered: ED Orders 07/23/22 14:26 XR chest 1V Stat EKG-12 Lead Stat RT Consult Eval and Treat NOW 07/23/22 14:42 Complete Blood Count AUTO DIFF Stat Comprehensive Metabolic Panel Stat Lactate (Lactic Acid) Stat Lipase Stat Partial Thromboplastin Time Stat Procalcitonin Stat Prothrombin Time INR Stat 07/23/22 15:15 Blood Culture Stat 07/23/22 16:10 US breast RT limited Stat Discontinued Medications Acetaminophen (Acetaminophen 325 Mg Tablet) 975 mg PO NOW ONE Stop: 07/23/22 15:10 Last Admin: 07/23/22 15:19 Dose: 975 mg Documented By: AT Dicloxacillin Sodium (Dicloxacillin 250 Mg Capsule) 500 mg PO Q6HR ONE Stop: 07/23/22 18:55 Sodium Chloride (Normal Saline 0.9%) 1,000 mls @ 1,000 mls/hr IV BOLUS ONE Stop: 07/23/22 15:25 Last Infusion: 07/23/22 16:08 Dose: 0 mls/hr Documented By: Admin: 07/23/22 14:55 Dose: 1,000 mls/hr Documented By: AT Cefazolin Sodium 1 gm/ Sodium (Chloride) 100 mls @ 200 mls/hr IV NOW ONE Stop: 07/23/22 16:40 Last Infusion: 07/23/22 16:57 Dose: 0 mls/hr Documented By: Admin: 07/23/22 16:19 Dose: 200 mls/hr Documented By: AT Sodium Chloride (Normal Saline 0.9%) 1,000 mls @ 1,000 mls/hr IV BOLUS ONE Stop: 07/23/22 17:09 Last Infusion: 07/23/22 18:03 Dose: 0 mls/hr Documented By: Admin: 07/23/22 16:20 Dose: 1,000 mls/hr Documented By: AT Vital Signs Vital signs: Vital Signs - 8 hr 07/23/22 14:19 07/23/22 15:30 07/23/22 15:15 Temperature 101.2 F H Pulse Rate 131 H 104 H 107 H Respiratory Rate 20 18 18 Blood Pressure 125/82 118/59 L 126/61 Pulse Oximetry 96 99 98 Oxygen Delivery Method Room Air Room Air Room Air 07/23/22 15:41 07/23/22 16:00 07/23/22 16:00 Temperature Pulse Rate 105 H 107 H Respiratory Rate Blood Pressure 113/63 Pulse Oximetry 99 97 Oxygen Delivery Method Room Air Room Air 07/23/22 16:31 07/23/22 16:30 07/23/22 16:30 Temperature 100.1 F H Pulse Rate 108 H Respiratory Rate Blood Pressure 110/60 Pulse Oximetry 97 Oxygen Delivery Method 07/23/22 17:00 07/23/22 17:00 07/23/22 17:30 Temperature Pulse Rate 108 H Respiratory Rate Blood Pressure 114/80 115/78 Pulse Oximetry 96 Oxygen Delivery Method 07/23/22 17:30 07/23/22 18:00 07/23/22 18:00 Temperature Pulse Rate 102 H 99 H Respiratory Rate Blood Pressure 117/66 Pulse Oximetry 96 96 Oxygen Delivery Method 07/23/22 18:16 Temperature 98.9 F Pulse Rate Respiratory Rate Blood Pressure Pulse Oximetry Oxygen Delivery Method Sepsis Evaluation (ED) Triage Screening Sepsis Screen: No Definite Risk Level 1 - Infection Sepsis Infection Criteria Present: None Response It is my opinion that his patient have a likely infectious etiology for meeting sepsis criteria: Does Fluid calculation based on 30 mL/kg within 1hr of criteria: ABW used Antibiotics initiated within 1 hr of Sepis dx: Yes Tissue Perfusion Reassessed within 6 hrs of infusion start time: No (patient tachycardia resolving, lactate not repeated.) MDM - Sepsis Lab Data 07/23/22 14:42 07/23/22 14:42 Labs: Lab Results 07/23/22 07/23/22 07/23/22 Range/Units 14:42 14:42 14:42 WBC 16.5 H (4.5-11.0) X10^3/uL RBC 4.19 (4.0-5.2) X10^6/uL Hgb 12.8 (12.0-16.0) g/dL Hct 38.7 (36-46) % MCV 92.4 (80-100) fL MCH 30.6 (26-34) PG MCHC 33.2 (30-36) % RDW 13.4 (11.6-14.8) % Plt Count 432 H (150-400) X10^3/uL Neut % (Auto) 87.7 H (50-75) % Lymph % (Auto) 7.3 L (25-40) % [place] % (Auto) 4.3 (3-14) % Eos % (Auto) 0.3 L (2-4) % Baso % (Auto) 0.4 (0-2) % Neut # (Auto) 15057 H (8185-6965) /uL Lymph # (Auto) 1200 (7727-9269) /uL [place] # (Auto) 700 (0-900) /uL Eos # (Auto) 0 (0-450) /uL Baso # (Auto) 100 (0-100) /uL PT 11.7 (10.1-12.7) SECONDS INR 1.0 (0.9-1.3) APTT 28 (26-36) SECONDS Sodium 136 L (137-145) mmol/L Potassium 3.8 (3.4-5.1) mmol/L Chloride 101 (98-107) mmol/L Carbon Dioxide 22 (22-32) mmol/L BUN 8 (7-17) mg/dL Creatinine 0.47 L (0.52-1.04) mg/dL Estimated GFR > 60 (>60) mL/min BUN/Creatinine Ratio 17.0 (6-22) Glucose 94 (70-100) mg/dL Lactate (0.7-2.1) mmol/L Calcium 9.1 (8.4-10.2) mg/dL Total Bilirubin 0.3 (0.2-1.3) mg/dL AST 24 (14-36) IU/L ALT 18 (<35) IU/L Alkaline Phosphatase 99 (38-126) U/L Total Protein 8.4 H (6.3-8.2) g/dL Albumin 4.6 (3.5-5.0) g/dL Globulin 3.8 (1.7-4.1) g/dL Albumin/Globulin Ratio 1.2 (1.0-2.8) Lipase 69 (23-300) U/L Procalcitonin 0.05 (<0.5) ng/mL 07/23/22 Range/Units 14:42 WBC (4.5-11.0) X10^3/uL RBC (4.0-5.2) X10^6/uL Hgb (12.0-16.0) g/dL Hct (36-46) % MCV (80-100) fL MCH (26-34) PG MCHC (30-36) % RDW (11.6-14.8) % Plt Count (150-400) X10^3/uL Neut % (Auto) (50-75) % Lymph % (Auto) (25-40) % [place] % (Auto) (3-14) % Eos % (Auto) (2-4) % Baso % (Auto) (0-2) % Neut # (Auto) (1443-3289) /uL Lymph # (Auto) (2423-1430) /uL [place]rick # (Auto) (0-900) /uL Eos # (Auto) (0-450) /uL Baso # (Auto) (0-100) /uL PT (10.1-12.7) SECONDS INR (0.9-1.3) APTT (26-36) SECONDS Sodium (137-145) mmol/L Potassium (3.4-5.1) mmol/L Chloride (98-107) mmol/L Carbon Dioxide (22-32) mmol/L BUN (7-17) mg/dL Creatinine (0.52-1.04) mg/dL Estimated GFR (>60) mL/min BUN/Creatinine Ratio (6-22) Glucose (70-100) mg/dL Lactate 0.8 (0.7-2.1) mmol/L Calcium (8.4-10.2) mg/dL Total Bilirubin (0.2-1.3) mg/dL AST (14-36) IU/L ALT (<35) IU/L Alkaline Phosphatase (38-126) U/L Total Protein (6.3-8.2) g/dL Albumin (3.5-5.0) g/dL Globulin (1.7-4.1) g/dL Albumin/Globulin Ratio (1.0-2.8) Lipase (23-300) U/L Procalcitonin (<0.5) ng/mL Imaging Data right breast US: Radiologist's Impression: [address] [address] Ultrasound Report Signed Patient: Nata Seo MR#: [id number] : 1995 Acct:[id number] Age/Sex: 27 / F Date of Service: 07/23/22 Loc: ED Accession Number: [id number] ?? Procedure: US breast RT limited Ordering Provider: Genoveva Gonzalez D.O. PROCEDURE: US BREAST RT LIMITED ? COMPARISON: None. ? INDICATIONS: POSSIBLE ABSCESS ? FINDINGS: Directed soft tissue ultrasound was obtained in upper outer quadrant of the right breast shows appropriate echotexture and vascularity without evidence of abscess ? IMPRESSION: Unremarkable soft tissue ultrasound without abscess ? Approved by: Terrence Medrano M.D. on 07/23/2022 at 17:11? ECG Data Attestation: I personally reviewed and interpreted this ECG as follows: Interpretation: Sinus tachycardia rate of 109 HI 128 QRS is 74 QTC [address]. No acute ST changes noted. MDM Narrative Medical decision making narrative: This is a 27-year-old female who presents with complaint of right breast pain, myalgias, fever tachycardia meet septic criteria patient appears to likely have a mastitis. Patient does not clearly have an abscess on physical examination but ultrasound ordered. Patient is actively she is been able to express milk no clogged ducts palpated. Patient was covered with IV antibiotic, 30 cc/kilos bolus. Tylenol, NS ordered, patient noted to still be tachycardic after initial L, patient had 2 L ordered as the total 30 cc/kilos bolus is actually less than 2 L. Patient received cefazolin IV, labs show a leukocytosis, negative procalcitonin, negative lactate, electrolytes renal function LFTs are negative is influenza/COVID RSV negative. Urine shows 2+ leuks but no other acute changes. Patient has some mild tenderness of the right breast, ultrasound is negative for abscess I suspect mastitis as her source of infection. She does meet septic criteria initially but has improved with Tylenol, fluids and after discussion plan for discharge home but with strict return precautions with follow-up with Dr. Brown her primary care/ provider in the next 24-48 hours. Patient was given a dose of oral dicloxacillin to take this evening and prescription sent to the pharmacy. Plan for Tylenol ibuprofen continue to hydrate at home. Patient case was discussed with Dr. Valle who is covering for Dr. Caballero will help facilitate follow-up. Discharge Plan Departure Patient Disposition: Home Clinical Impression: Mastitis, Instructions: DI for Mastitis Activity Restrictions/Additional Instructions: Please follow up in next 24-48 hours for recheck with Dr. Caballero or one of your partners, call the office if you have not heard from them by 10 or 11:00 a.m. tomorrow. You may continue to breastfeed medications prescribed today are appropriate during . You may notice a decrease in output on the right side, continue to offer on the right side and hydrate regularly and it will often improve as the infection improves. You can take a 1000 mg of Tylenol every 6 hours as needed and/or ibuprofen up to 800 mg every 8 hours as needed for fevers/chills. Take antibiotics until completely gone. Prescription sent to [facility] in [place] Please return for persistent fevers increasing pain, if you are having worsening symptoms, new chest pain, shortness of breath, persistent vomiting, increasing swelling, redness or pain of the breast no abdominal back or flank pain, or other new or concerning changes Prescriptions: New dicloxacillin 500 mg capsule 500 mg PO QID Qty: 40 0RF No Action prenat.vits,nabil,vjx-oddv-ccals Tablet 1 tab PO DAILY Qty: 90 3RF docusate sodium 100 mg Capsule 100 mg PO DAILY Qty: 30 0RF ibuprofen 600 mg Tablet 600 mg PO Q6HR PRN (Reason: Pain, Mild (1-3)) Qty: 30 0RF Referrals: Sandra Caballero MD [Primary Care Provider] - Stand Alone Forms: Patient Portal/API
[2022-07-23] MEDS: CEFAZOLIN VIAL 1 GM in SODIUM CHLORIDE 0.9% 100 ML IV (16:19)
[2022-07-23] MEDS: DICLOXACILLIN 250 MG CAPSULE 500 MG PO (19:39)
== END 2022-07-23 19:50 | disposition home or self-care (01) ==
PROVIDERS: Emergency Provider Emergency Medicine; PCP Family Medicine
DX: O91.22 Nonpurulent mastitis associated with the puerperium (principal); Z20.822 Contact with and (suspected) exposure to COVID-19; R30.0 Dysuria; R50.9 Fever, unspecified; R52 Pain, unspecified
CPT/HCPCS: 0241U; 36415; 71045; 76642; 80053; 83605; 83690; 84145; 85025; 85610; 85730; 87040; 87086; 93005; 96361; 96365; 99284; J0690

== ENCOUNTER → 2022-09-05 09:03 | Outpatient (CLI) | payer OTHER, SELFPAY ==
--- NOTE | 2022-09-05 09:04 | DI.US.S_ITS ---
LIMITED ULTRASOUND OF RIGHT BREAST: 09/05/2022 CLINICAL: Palpable right breast lump and pain. Comparison is made to exam dated: 07/23/2022 [facility]. Color flow ultrasound of the right breast 1-2 o'clock and 10-11 o'clock regions was performed. Krishna scale images of the real-time examination were reviewed. No significant abnormalities were seen sonographically in the right breast. Specifically, no finding to explain the patient's palpable abnormality or pain. IMPRESSION: NEGATIVE There is no sonographic correlate to the patient's palpable abnormality or pain, and no evidence of malignancy. Screening mammography beginning at age 40 is recommended. Findings and recommendations were conveyed to the patient at time of exam. This exam was interpreted at Station ID: [id number]. Electronically Signed By: Karen pagan/:09/05/2022 09:48:33 letter sent: Normal Exam Ultrasound BI-RADS: 1 Negative
--- NOTE | 2022-09-05 09:04 | DI.US.S_ITS ---
LIMITED ULTRASOUND OF LEFT BREAST: 09/05/2022 CLINICAL: Palpable left breast lump and pain. Comparison is made to exam dated: 07/23/2022 [facility]. Color flow ultrasound of the left breast 1 o'clock and 9-11 o'clock regions was performed. Krishna scale images of the real-time examination were reviewed. No significant abnormalities were seen sonographically in the left breast. Specifically, no finding to explain the patient's palpable abnormality or pain. IMPRESSION: NEGATIVE There is no sonographic correlate to the patient's palpable abnormality or pain, and no evidence of malignancy. Screening mammography beginning at age 40 is recommended. Findings and recommendations were conveyed to the patient at time of exam. This exam was interpreted at Station ID: [id number]. Electronically Signed By: Karen pagan/:09/05/2022 09:47:31 letter sent: Normal Exam Ultrasound BI-RADS: 1 Negative
== END ==
PROVIDERS: PCP Family Medicine; Referring Provider Family Medicine; Visit Provider Family Medicine
DX: N64.4 Mastodynia (principal); N63.25 Unspecified lump in the left breast, overlapping quadrants; N63.15 Unspecified lump in the right breast, overlapping quadrants
CPT/HCPCS: 76642

== ENCOUNTER → 2022-12-13 14:30 | Outpatient (CLI) | payer OTHER, SELFPAY ==
[2022-12-13 20:58] LABS: Urine N gonorrhoeae NOT DETECTED
[2022-12-13 21:46] LABS: Urine Chlamydia NOT DETECTED
== END ==
PROVIDERS: PCP Family Medicine; Visit Provider Physician Assistant
DX: Z30.09 Encounter for other general counseling and advice on contraception (principal)
CPT/HCPCS: 87491; 87591

== ENCOUNTER → 2023-02-06 13:52 | Outpatient (ROUT) | payer OTHER, SELFPAY ==
[2023-02-06 15:33] LABS: Urine Chlamydia NOT DETECTED; Urine N gonorrhoeae NOT DETECTED
== END ==
PROVIDERS: PCP Family Medicine; Visit Provider Family Medicine
DX: Z30.430 Encounter for insertion of intrauterine contraceptive device (principal)
CPT/HCPCS: 87491; 87591

== ENCOUNTER → 2023-08-17 10:14 | Outpatient (CLI) | payer OTHER, SELFPAY ==
--- NOTE | 2023-08-17 10:16 | DI.US.S_ITS ---
PROCEDURE: US PELVIC COMPLETE INDICATIONS: IUD placement TECHNIQUE: Real-time scanning was performed of the pelvic organs, with image documentation. Additional endovaginal scanning was necessary due to incomplete visualization of the adnexal and endometrial structures by transabdominal scanning. COMPARISON: None. FINDINGS: Uterus: Uterus is retro and normal in size at 5.8 x 5.2 x 3.2 cm. The myometrium is homogeneous. The endometrium measures 5 mm combined thickness. No intrauterine device is noted within endometrium. Trace amount of fluid is noted within endometrium. No gross solid endometrial mass. Ovaries: The right ovary measures 4.2 x 3.5 x 3.0 cm, with a calculated ovarian volume of 23 cc. The left ovary measures 4.5 x 2 x 2.2 cm, with a calculated ovarian volume of 10.3 cc. There is a 2.2 x 1.6 x 1.4 cm heterogeneously hypoechoic structures seen within right ovary with suggestion of internal solid component. Left ovary is within normal limits. Less than 12 follicles can be seen in each ovary. No adnexal masses are seen. Other: No pathologic free abdominal or pelvic fluid. IMPRESSION: 1. No intrauterine device is identified. Trace amount of endometrial fluid. No gross endometrial mass. 2. 2.2 x 1.6 x 1.4 cm complex cystic structure within right ovary with possible internal solid component which could represent complex cyst versus cystic neoplasm, suggest follow-up ultrasound in 4-6 weeks. Normal appearing left ovary. We strive to produce accurate, complete, and clear reports of imaging services. To assist us in improving patient care, this report was composed using standard report templates and voice recognition software. Therefore, it may contain abnormal punctuation, insertions and/or omissions. Occasional wrong-word or sound-alike substitutions may occur. Though we review the report and make efforts to correct it, we do recommend that the report be read carefully in proper context to recognize any text inaccuracies. Dictated by: Dougie Ingram M.D. on 08/17/2023 at 13:22 Approved by: Dougie Ingram M.D. on 08/17/2023 at 13:25
== END ==
PROVIDERS: PCP Family Medicine; Referring Provider Family Medicine; Visit Provider Family Medicine
DX: Z30.430 Encounter for insertion of intrauterine contraceptive device (principal)
CPT/HCPCS: 76830; 76856

== ENCOUNTER → 2023-08-23 09:18 | Outpatient (CLI) | payer OTHER, SELFPAY ==
--- NOTE | 2023-08-23 09:19 | DI.CT.S_ITS ---
PROCEDURE: CT ABDOMEN PELVIS WO CON INDICATIONS: IUD not in uterus, f/u cyst TECHNIQUE: Axial sections were acquired from the lung bases to the pubic symphysis. Coronal and sagittal reformats were performed. For radiation dose reduction, the following was used: automated exposure control, adjustment of mA and/or kV according to patient size. COMPARISON: [facility], , PELVIC COMPLETE, 08/17/2023, 10:28. FINDINGS: Image quality: Diagnostic. Lower Chest: No significant findings. URINARY: Right Kidney: No stones or hydronephrosis. Right Ureter: No hydroureter. Left Kidney: No stones or hydronephrosis. Left Ureter: No hydroureter. Bladder: Normal wall thickness. No stones. ABDOMEN: Liver: No contour-deforming solid mass. Gallbladder: No radiopaque gallstones or wall thickening. Biliary ducts: No biliary dilation. Pancreas: No ductal dilation. Spleen: Size is within normal limits. Adrenal Glands: No adrenal nodules. Stomach and Bowel: Normal colonic caliber, without significant wall thickening. Peritoneum: No abnormal intraperitoneal fluid. No free air. Ventral Wall: No hernia. Abdominal Nodes: No enlarged retroperitoneal or mesenteric lymph nodes. Vessels: Aorta and inferior vena cava are normal in size. PELVIS: Pelvic Organs: An IUD is seen within the peritoneal cavity, anterior to the uterus, as seen on series 2, image 56, series 4, image 13, and on series 5, image 39. The uterus appears normal for age. No adnexal masses are seen. Cystic changes can be seen of the ovaries, which are regarded to be within physiologic limits. Pelvic Nodes: Unremarkable. Miscellaneous: No inguinal hernias are seen. Bones: Unremarkable. Mild levoconvex scoliotic curvature is noted. No focal AP alignment abnormality is seen. IMPRESSION: Extrauterine IUD, seen anterior to the uterus within the peritoneal cavity Dictated by: Deangelo Ryan M.D. on 08/23/2023 at 10:52 Approved by: Deangelo Ryan M.D. on 08/23/2023 at 10:54
== END ==
PROVIDERS: PCP Family Medicine; Referring Provider Family Medicine; Visit Provider Family Medicine
DX: T83.32XA Displacement of intrauterine contraceptive device, initial encounter (principal); N83.209 Unspecified ovarian cyst, unspecified side
CPT/HCPCS: 74176

== ENCOUNTER 2023-09-20 06:56 | Day surgery (SDC) | payer OTHER, SELFPAY ==
[2023-09-20 07:32] VITALS: BP 120/81; PULSE 90; RESP 17; TEMP 36.8; O2SAT 99
[2023-09-20 07:41] LABS: COVID19 -Nasal RAPID Negative (Negative)
[2023-09-20] MEDS: LACTATED RINGERS 1,000 ML 42 ML IV (07:48)
[2023-09-20] MEDS: ACETAMINOPHEN 325 MG TABLET 975 MG PO (07:49)
--- NOTE | 2023-09-20 07:58 | PM.PREOP ---
Pre-operative Note COVID-19 COVID-19 status: Negative Result date/Date tested (Pos, Neg/Pending): 09/20/23 Interval Note History & Physical reviewed/Exam performed by Physician: Yes Changes to H&P: Yes H&P completed within 30 days and has changed as indicated here:: Patient developed URI sx 5 days ago but improving. Lungs clear. Discussed w/ anesthesia who is comfortable with proceeding as scheduled and I concur.
--- NOTE | 2023-09-20 08:27 | SUR.OPER ---
Lithotomy on padded OR bed, head on pillow, arms secured on padded arm boards at <90 degrees abduction. Legs secured in padded yellow fins stirrups.
[2023-09-20] MEDS: BUPIVACAINE 0.5% W/ EPI (PF) 30 ML VIAL INJ (08:30)
[2023-09-20 08:52] VITALS: BP 112/76; PULSE 114; RESP 16; TEMP 36.1; O2SAT 98
[2023-09-20 08:57] VITALS: BP 113/76; PULSE 102; RESP 16; TEMP 36.2; O2SAT 99
[2023-09-20 09:02] VITALS: BP 113/75; PULSE 96; RESP 16; TEMP 36.3; O2SAT 98
--- NOTE | 2023-09-20 09:02 | P.OP_ITS ---
Operative Date/Time/Diagnoses Date of procedure: 09/20/23 Time of procedure: 08:00 Pre-op diagnosis: Malpositioned (intraperitoneal) intrauterine device Post-op diagnosis: same Procedure & Clinicians Procedure: Procedures Operation Date: 09/20/23 07:45 Actual Procedure Side Surgeon p Diagnostic Laparoscopy & Laparoscopic removal of intrabdominal IUD Drew Song MD Indications: Deangelo is a 28-year-old status post spontaneous vaginal in June 2022 who presents in referral from her primary care provider for evaluation and management of what appears to be drawn IUD. A Mirena IUD was inserted on 02/06/2023 and the insertion procedure note reflects a routine uncomplicated Mirena IUD insertion. The patient had intermittent spotting with the IUD and occasional episodes of pain. Post insertion string check confirmed IUD strings visible at the cervical os in early March 2023 but a subsequent evaluation in early July 2023 showed that the strings were no longer visible at the cervical os. Pelvic ultrasound was performed which failed to show an intrauterine IUD and subsequent abdominopelvic CT performed 08/23/2023 showed: FINDINGS: Image quality: Diagnostic. Lower Chest: No significant findings. URINARY: Right Kidney: No stones or hydronephrosis. Right Ureter: No hydroureter. Left Kidney: No stones or hydronephrosis. Left Ureter: No hydroureter. Bladder: Normal wall thickness. No stones. ABDOMEN: Liver: No contour-deforming solid mass. Gallbladder: No radiopaque gallstones or wall thickening. Biliary ducts: No biliary dilation. Pancreas: No ductal dilation. Spleen: Size is within normal limits. Adrenal Glands: No adrenal nodules. Stomach and Bowel: Normal colonic caliber, without significant wall thickening. Peritoneum: No abnormal intraperitoneal fluid. No free air. Ventral Wall: No hernia. Abdominal Nodes: No enlarged retroperitoneal or mesenteric lymph nodes. Vessels: Aorta and inferior vena cava are normal in size. PELVIS: Pelvic Organs: An IUD is seen within the peritoneal cavity, anterior to the uterus, as seen on series 2, image 56, series 4, image 13, and on series 5, image 39. The uterus appears normal for age. No adnexal masses are seen. Cystic changes can be seen of the ovaries, which are regarded to be within physiologic limits. Pelvic Nodes: Unremarkable. Miscellaneous: No inguinal hernias are seen. Bones: Unremarkable. Mild levoconvex scoliotic curvature is noted. No focal AP alignment abnormality is seen. IMPRESSION: Extrauterine IUD, seen anterior to the uterus within the peritoneal cavity The patient is and she has not had regular periods since her delivery. She has occasional sharp pains in the pelvis and occasional vaginal spotting but denies any GI or symptoms or increasing pain symptoms. We had an extended discussion about the location of her IUD and methods for removing the IUD. Patient was told is not necessarily times sensitive but that visceral perforation is possible and to be alert for any significant increase in her pain. After discussion of regarding retrieval of the IUD, will move forward with scheduling laparoscopic evaluation of the abdomen/pelvis with plans for removal of the IUD. She presents today for her scheduled surgery. Surgeon: Drew Song Anesthesia Type: General Operative Notes Findings: Normal female pelvis. An intact Mirena IUD was seen to be entangled with the omentum and removed intact without difficulty. Remainder of the abdomen and pelvis were normal as visualized laparoscopically. Closure Type: primary Specimen(s): none Estimated blood loss (mL): 0 Blood products transfused: none Procedure in detail: With the patient under satisfactory general anesthesia in the modified dorsal lithotomy position, the vagina, perineum, and abdomen were prepped and draped in the usual manner for laparoscopy. A pre-surgical safety time-out was then taken in accordance with [facility] Main speculum was inserted in the vagina and the endocervical canal dilated with Hegar dilators so as to be able to introduce a Zumi manipulator. Manipulator placed in the endometrial cavity the balloon inflated for uterine manipulation. The light has a was infiltrated with 0.5% Marcaine with epinephrine and a 5 mm vertical incision was made in the skin of the inferior umbilicus. Varies needle was then used to insufflate the abdomen with carbon dioxide. 5 mm laparoscopic trocar and sleeve were then introduced through the umbilical incision into the abdominal cavity and correct placement was confirmed by direct visualization. The abdomen was then insufflated carbon dioxide and the patient placed in steep Trendelenburg. The IUD was easily visualized at which point a 2nd 5 mm trocar and sleeve were introduced in a similar manner in the midline suprapubic region. Using a 2 port technique, an atraumatic grasper was introduced through the suprapubic port and the IUD strings grasped. Gentle traction, IUD was freed from the omentum and removed through the suprapubic port. The IUD was inspected and found to be intact. The area of the omentum from which IUD was removed was inspected and no bleeding or significant disruption of the omentum was evident. The pneumoperitoneum was then vented and the laparoscopic ports removed. The incisions were then closed with 4-0 Monocryl using inverted interrupted subcuticular stitches, skin glue was applied, and appropriate dressings applied. The patient was then awakened from anesthesia and transferred to the PACU for a period of observation and recovery after having tolerated the procedure well. Complications: none Post-operative Condition: stable Disposition: PACU Plan for aftercare: Routine postoperative care with follow-up planned for 2 weeks postop or as needed.
[2023-09-20 09:12] VITALS: BP 117/76; PULSE 98; RESP 16; TEMP 36.3; O2SAT 100
== END 2023-09-20 09:23 | disposition home or self-care (01) ==
PROVIDERS: PCP Family Medicine; Referring Provider Obstetrics & Gynecology; Visit Provider Obstetrics & Gynecology
PROC: (CPT 49320; principal; 2023-09-20 07:45)
DX: Z30.432 Encounter for removal of intrauterine contraceptive device (principal); T83.32XA Displacement of intrauterine contraceptive device, initial encounter; Z11.52 Encounter for screening for COVID-19
CPT/HCPCS: 49402; 81025; 87635; J1100; J1885; J2405; J2704; J3010

== ENCOUNTER → 2023-10-04 07:55 | Outpatient (CLI) | payer OTHER, SELFPAY ==
--- NOTE | 2023-10-04 08:00 | DI.US.S_ITS ---
PROCEDURE: US PELVIC COMPLETE INDICATIONS: right ovary complex cyst TECHNIQUE: Real-time scanning was performed of the pelvic organs, with image documentation. Additional endovaginal scanning was necessary due to incomplete visualization of the adnexal and endometrial structures by transabdominal scanning. COMPARISON: [facility], US, US PELVIC COMPLETE, 08/17/2023, 10:28. FINDINGS: Uterus: Uterus is retroverted and normal in size at 8.2 x 5.2 x 4.4 cm. The myometrium is homogeneous. The endometrium measures 11 mm combined thickness. Ovaries: The right ovary measures 3.1 x 1.9 x 1.7 cm, with a calculated ovarian volume of 5.2 cc. The left ovary measures 4.6 x 2.1 x 2.3 cm, with a calculated ovarian volume of 11.6 cc. The ovaries have a normal sonographic appearance. Less than 12 follicles can be seen in each ovary. No adnexal masses are seen. Other: No pathologic free abdominal or pelvic fluid. IMPRESSION: Right ovarian complex cyst has resolved Approved by: Terrence Medrano M.D. on 10/04/2023 at 20:21
== END ==
PROVIDERS: PCP Family Medicine; Referring Provider Family Medicine; Visit Provider Family Medicine
DX: N83.201 Unspecified ovarian cyst, right side (principal)
CPT/HCPCS: 76830; 76856